=== PATIENT | male | born 1950 | race Caucasian/White ===

== ENCOUNTER 2021-09-12 15:47 | Outpatient (CLI) | payer OTHER | END 2021-09-12 15:52 | disposition home or self-care (01) | LOC: LAB 15:47 | PROVIDERS: ATTEND Urology | DX: R97.20 Elevated prostate specific antigen [PSA] (principal) ==

== ENCOUNTER 2021-10-06 07:22 | Outpatient (CLI) | payer OTHER | END 2021-10-06 07:27 | disposition home or self-care (01) | LOC: SONOGRAMA 07:22 | PROVIDERS: ATTEND Urology | DX: C61 Malignant neoplasm of prostate (principal); N40.0 Benign prostatic hyperplasia without lower urinary tract symptoms; R97.20 Elevated prostate specific antigen [PSA] ==

== ENCOUNTER 2022-03-30 07:24 | Outpatient (CLI) | payer OTHER | END 2022-03-30 07:37 | disposition home or self-care (01) | LOC: TOM 07:24 | PROVIDERS: ATTEND Urology | DX: C61 Malignant neoplasm of prostate (principal); R31.0 Gross hematuria | CPT/HCPCS: 72193; Q9965 ==

== ENCOUNTER 2022-04-13 08:47 | Outpatient (CLI) | payer OTHER | END 2022-04-13 08:49 | disposition home or self-care (01) | LOC: TOM 08:47 | PROVIDERS: ATTEND Radiology Diagnostic Radiology | DX: N32.89 Other specified disorders of bladder (principal) ==